=== PATIENT | male | born 1955 | race African-American/Black ===

== ENCOUNTER 2017-05-01 18:41 | Emergency (ER) | payer SELFPAY ==
[~2017-05-01] VITALS: Ht 175.3 cm; Wt 104.0 kg
[~2017-05-01 18:41] MED LIST: SUPPLEMENTS
[2017-05-01 19:01] VITALS: BP 132/89; PULSE 99; RESP 18; O2SAT 99
--- NOTE | 2017-05-01 19:11 | ED.REPORT ---
HPI-General Illness Date of Service May 01, 2017 ED Provider: Farrukh Maldonado MD Pt is a generally healthy 62 y/o male presenting to the ED c/o upper CP onset 5 hours ago. He describes his pain as a muscle spasm which is exacerbated by moving the left arm or twisting the next to the right. He has been trying to sleep on his left side recently because he heard it helps his digestive system. He has also been coughing recently due to allergies. He has no history of cardiac disease and only takes vitamins regularly. He has been tested for cardiac disease in the past because of episodes of anxiety which he doesn't experience anymore. Nursing Notes Stated Complaint: CHEST PAIN Chief Complaint: Chest Pain Nursing Notes Reviewed: Yes Allergies: Coded Allergies: No Known Allergies (Unverified Allergy, 02/24/13) Miscellaneous Medications ([Supplements]) General Time Seen by MD: 19:08 Chief Complaint Chest pain Hx Obtained From: Patient Arrived By: Walk-in Sudden in Onset?: No Onset Occurred: 5 - 8 hours ago Symptom Duration: Since onset Location: : Chest Quality: Aching, Painful Severity: Current: Mild Severity: Maximum: Moderate Similar Sx Previous: No Past Medical History Past Medical History Low back pain - L4/L5 degenerative changes seen on MRI March 2015 Distant history of anxiety Past Surgical History None reported Smoking History Never Smoker Social History Alcohol Use: "Social" Drug Use: Denies drug use Ambulatory Status Independent Review of Systems Full Review of Systems Constitutional: Denies: Chills, Fever Respiratory: Reports: Non-productive cough, Denies: Pleuritic pain, Shortness of breath Cardiovascular: Reports: Chest pain, Denies: Dyspnea on exertion GI: Denies: Abdominal pain, Nausea, Vomiting Complete sys rev & neg: except as marked. Physical Exam Vital Signs Vital Signs Date Time Temp Pulse Resp B/P Pulse Ox O2 Delivery O2 Flow Rate FiO2 05/01/17 20:49 78 24 144/98 100 Room Air 05/01/17 19:01 99 18 132/89 99 Room Air Initial VS: Reviewed, Vital signs normal Head / Eyes: Atraumatic, Normocephalic, PERRL ENT: Mucous membranes moist, Conjunctiva normal, No scleral icterus Neck: Supple, Full range of motion Cardiovascular: Regular rate & rhythm, Heart sounds normal, Intact distal pulses Abdomen / GI: Soft, Non-tender, No guarding, No rebound, No distention Extremities: Vascular intact, Neuro intact, No swelling Skin: Warm, Dry, No cyanosis Neurologic: Alert, Oriented, Nonfocal Psychiatric: Mood/affect normal, Behavior normal, Normal thought content General/Constitutional: Awake, Alert, No acute distress, Well appearing, Cooperative, Not toxic appearing Respiratory / Chest: Atraumatic, Breath sounds NL, Breath sounds = bilat, No respiratory distress, No rales, No rhonchi, No wheezing, No retractions, No stridor Tenderness about left anterior chest wall beneath the clavicle Pain reproducible by moving the left shoulder Interpretation & Diagnostics Lab Results Interpretation Result Diagram: 05/01/17191405/01/171914 Test 05/01/17 19:15 White Blood Count 5.7th/mm3 (3.8-10.1) Red Blood Count 4.66mil/mm3 (4.40-5.80) Hemoglobin 13.5g/dL (13.8-17.2) Hematocrit 41.9% (41.0-50.0) Mean Corpuscular Volume 89.9fL (81-100) Mean Corpuscular Hemoglobin 29.0pg (27.0-35.0) Mean Corpuscular Hemoglobin Concent 32.2% (32.0-37.0) Red Cell Distribution Width 13.7% (12.3-15.4) Platelet Count 218bil/L (150-400) Neutrophils (%) (Auto) 44.2% (40-74) Lymphocytes (%) (Auto) 29.2% (14-46) Monocytes (%) (Auto) 10.5% (4-12) Eosinophils (%) (Auto) 15.2% (0-5) Basophils (%) (Auto) 0.5% (0-3) Hold Urine Received (Received) Sodium Level 137mEq/L (134-144) Potassium Level 4.2mEq/L (3.5-5.2) Chloride Level 99mEq/L (97-108) Carbon Dioxide Level 26mmol/L (18-29) Blood Urea Nitrogen 17mg/dL (8-27) Creatinine 1.00mg/dL (0.76-1.27) Estimat Glomerular Filtration Rate 81mL/min (>59) Glucose Level 122mg/dL (60-99) Calcium Level 9.2mg/dL (8.5-10.1) Magnesium Level 2.0mg/dL (1.6-2.6) Total Bilirubin 0.2mg/dL (0.0-1.2) Aspartate Amino Transf (AST/SGOT) 26U/L (0-50) Alanine Aminotransferase (ALT/SGPT) 23U/L (0-44) Alkaline Phosphatase 66U/L (25-160) Troponin T < 0.010ug/L (0.0-0.011) Total Protein 7.1g/dL (6.4-8.4) Albumin 4.1g/dL (3.4-5.0) [place] Top Tube Received (Received) ECG Interpretation ECG Interpretation: Sinus rhythm rate [address] or T wave changes Compared to prior dated 04/14/13 no significant changes present Time: 19:17 Interpreted by: ED physician Normal ECG Interpretation: No acute ischemic changes X-Ray Chest Interpretation Chest Xray Interpretation: IMPRESSION: No abnormality seen semiupright portable chest. Cause of pain and cough is not identified. Dictated by: Heladio Garcia M.D. on 05/01/2017 at 19:27 Approved by: Heladio Garcia M.D. on 05/01/2017 at 19:28 View: Portable, 1 view Interpretation / Wet Read by: Interpret - Radiologist Re-Eval/Medical Decision Med Decision/Clinical Course Pt is a generally healthy 62 y/o male presenting to the ED c/o upper CP onset 5 hours ago. He describes his pain as a muscle spasm which is exacerbated by moving the left arm or twisting the next to the right. He has been trying to sleep on his left side recently because he heard it helps his digestive system. He has also been coughing recently due to allergies. He has no history of cardiac disease and only takes vitamins regularly. He has been tested for cardiac disease in the past because of episodes of anxiety which he doesn't experience anymore. Here in the emergency department the patient is afebrile with stable vital signs and examination as above. Labs notable as below: CBC: unremarkable CMP: unremarkable Troponin: negative EKG: Sinus rhythm rate [address] or T wave changes Compared to prior dated 04/14/13 no significant changes present Chest x-ray: IMPRESSION: No abnormality seen semiupright portable chest. Cause of pain and cough is not identified. Overall presentation seems highly consistent with musculoskeletal chest pain as the pain is reproducible with palpation and range of motion of his left arm. I suspect that his musculoskeletal pain is caused by the fact that he is trying to consistently sleep only on his left side. Given the duration of symptoms I am reassured by the patient's single negative troponin and EKG without acute ischemic changes. Presentation is not suggestive of pulmonary embolism nor does he have major risk factors for pulmonary embolism. I do not feel that further workup is immediately indicated. Here in the emergency department the patient was treated with Toradol as well as an icepack and reported symptomatic improvement. At this time, feel that he is appropriate for discharge home. He is advised to return right away for any new or worsening symptoms and to follow up closely with his primary care physician. Prior to discharge follow-up and return precautions were reviewed in detail with the patient who verbalized understanding and agreement with the plan. The patient was discharged in stable condition. Time of Eval: 20:37 Re-Evaluation/Progress Note: Pt rechecked. Informed pt of plan for treatment. Pt understands and agrees with plan for treatment. F/U instructions and RTER warnings given. All questions addressed. Counseled Regarding: Diagnosis, Lab results, Need for follow-up, When/why to return to ED Discharge & Departure Primary Impression: Chest wall pain Additional Impression: Musculoskeletal chest pain Disposition: Home Discharge Condition All VS Reviewed: Yes Condition: Stable Patient Instructions: Chest Pain (ED) Additional Instructions: Thank you for seeking care at the emergency room. It is difficult for us to make definitive diagnoses in the ED but we believe that you are experiencing chest wall pain. Our primary goal today in the ED was to evaluate you for any life-threatening conditions. Your evaluation was reassuring. Labs, EKG, and chest x-ray were all normal. There is no sign of heart attack. Take 600 mg Ibuprofen every 6 hours as needed for pain. Apply ice and hot packs. Try stretching. You should follow-up with your primary doctor on Wednesday for a recheck. You should return to the ED immediately if you develop fevers, vomiting, worsening pain, shortness of breath, lightheadedness, weakness or any other concerning signs or symptoms. Thank you for letting us partake in your care today. Referrals: [facility] Scribe Attestation Portions of this note were transcribed by Real Ragsdale. I, Dr. Maldonado, personally performed the history, physical exam and medical decision-making; I reviewed and confirmed the accuracy of the information in the transcribed note. Signed by Pina Ramirez, 05/01/17 - 1929 Farrukh Maldonado MD May 01, 2017 19:11 REAL RAGSD[place] May 01, 2017 19:20
[2017-05-01 19:27] LABS: BASOPHILS % (AUTO) 0.5 % (0-3); EOSINOPHILS % (AUTO) 15.2 % (0-5); MONOCYTES % (AUTO) 10.5 % (4-12); Mean Corpuscular Volume 89.9 fL (81-100); NEUTROPHILS % (AUTO) 44.2 % (40-74); Platelet Count 218 bil/L (150-400)
--- NOTE | 2017-05-01 19:29 | DRSVH ---
PROCEDURE: X-RAY CHEST ONE VIEW, PORTABLE ([id number]) INDICATIONS: Chest pain TECHNIQUE: One view of the chest was acquired. COMPARISON: [facility], , CHEST 2VW, 05/17/2010, 12:41. FINDINGS: Surgical changes and devices: None. Lungs and pleura: No pleural effusions or pneumothorax. Lungs are clear. Mediastinum: Mediastinal contours appear normal. Heart size is normal. Bones and chest wall: No suspicious bony lesions. Overlying soft tissues appear unremarkable. IMPRESSION: No abnormality seen semiupright portable chest. Cause of pain and cough is not identified . Dictated by: Heladio Garcia M.D. on 05/01/2017 at 19:27 Approved by: Heladio Garcia M.D. on 05/01/2017 at 19:28
[2017-05-01 19:54] LABS: TROPONIN T < 0.010 ug/L (0.0-0.011)
[2017-05-01] MEDS ORDERED: Ketorolac 15 mg/mL Inj IM ONE (20:35)
[2017-05-01 20:49] VITALS: BP 144/98; PULSE 78; RESP 24; O2SAT 100
== END 2017-05-01 21:03 | disposition home or self-care (01) ==
LOC: SED 18:41
DX: R07.89 Other chest pain (principal)
CPT/HCPCS: 36415; 71010; 80053; 83735; 84484; 85025; 93005; 96372; 99285; J1885